=== PATIENT | female | born 1985 | race Two or more races ===

== ENCOUNTER → 2024-05-30 | Outpatient (CLI) | payer OTHER, SELFPAY ==
--- NOTE | 2024-05-30 09:55 | XR_ITS ---
Examination: PA lateral chest 2 views TECHNIQUE: Upright PA lateral chest 2 views Exam date and time: May 30, 2024 1033 hours INDICATIONS: Right-sided chest pain beginning one week ago. FINDINGS: Normal heart size No pneumonia or pulmonary edema 2 mm nodule right upper lobe Clavicles ribs thoracic vertebral bodies appear intact IMPRESSION: No pneumothorax pulmonary edema or pneumonia In the absence of prior chest films recommend 3 month follow-up PA lateral chest document stability of tiny pulmonary nodule right upper lobe
== END | disposition home or self-care (01) ==
LOC: CDIM 09:24
PROVIDERS: PCP Physician Assistant; Referring Provider Physician Assistant; Visit Provider Physician Assistant
DX: R07.89 Other chest pain (principal)
CPT/HCPCS: 71046